=== PATIENT | male | born 1985 | race Native Hawaiian/Other Pacific Islander ===

== ENCOUNTER 2021-07-31 12:04 | Emergency (ER) | payer OTHER, SELFPAY ==
[~2021-07-31] VITALS: Ht 167.6 cm; Wt 56.5 kg
[2021-07-31 12:07] VITALS: BP 122/73
[2021-07-31] MEDS ORDERED: SERT-141 PO (12:13)
== END 2021-07-31 14:28 | disposition left against medical advice (07) ==
LOC: M ED 12:04
DX: Z53.21 Procedure and treatment not carried out due to patient leaving prior to being seen by health care provider (principal)